=== PATIENT | female | born 1935 | race Caucasian/White ===

== ENCOUNTER 2016-02-26 12:14 | Outpatient (CLI) | payer MEDICARE, OTHER ==
[2016-02-26 13:04] LABS: eGFR (African) > 60; eGFR (Non-African) > 60
== END 2016-02-26 12:15 ==
LOC: LAB 12:14
PROVIDERS: ATTEND Internal Medicine Cardiovascular Disease
DX: Z51.81 Encounter for therapeutic drug level monitoring (principal); I49.9 Cardiac arrhythmia, unspecified
CPT/HCPCS: 36415; 80048